=== PATIENT | female | born 1980 | race African-American/Black ===

== ENCOUNTER 2025-05-14 15:55 | Emergency (ER) | payer OTHER ==
[2025-05-14] MEDS ORDERED: Ketorolac Tromethamine 30 MG (1 mL) VIAL ONE (16:40)
[2025-05-14] MEDS ORDERED: HYDROcodone/Acetaminophen 10/325 mg Tablet ONE ×2 (16:42→16:43)
[2025-05-14] MEDS ORDERED: Ibuprofen 800 MG TAB ONE (16:46)
== END 2025-05-14 17:50 | disposition home or self-care (01) ==
LOC: ERS 15:55
DX: S39.012A Strain of muscle, fascia and tendon of lower back, initial encounter (principal); F17.210 Nicotine dependence, cigarettes, uncomplicated; V89.2XXA Person injured in unspecified motor-vehicle accident, traffic, initial encounter
CPT/HCPCS: 72128; 72131; J1885